=== PATIENT | male | born 1955 | race Caucasian/White ===

== ENCOUNTER → 2023-07-05 07:56 | Outpatient (BNVA) | payer MEDICARE, OTHER, SELFPAY | PROVIDERS: Family Provider Family Medicine; PCP Family Medicine; Visit Provider Podiatrist Foot & Ankle Surgery | DX: R22.41 Localized swelling, mass and lump, right lower limb; M67.471 Ganglion, right ankle and foot; M20.21 Hallux rigidus, right foot | CPT/HCPCS: 73630; 99204 ==

== ENCOUNTER 2023-08-04 05:47 | Day surgery (SDC) | payer MEDICARE, OTHER, SELFPAY ==
[2023-08-04] VITALS (7 sets, daily range): BP systolic 95–169; BP diastolic 61–112; PULSE 43–56; RESP 14–18; TEMP 36.1–36.7; O2SAT 95–99; BMI 25.0
[2023-08-04] MEDS: sodium chloride 0.9% 1,000 ML 30 ML IV (06:36)
--- NOTE | 2023-08-04 06:37 | W.PM.OPSUD ---
Surgery/Procedure H&P Update DATE OF PROCEDURE: August 04, 2023 DATE H&P PERFORMED: 07/05/23 H&P UPDATE INFORMATION: I have reviewed H&P completed within last 30 days, I have examined patient prior to procedure, No changes to prior documentation and H&P is in [facility] EMR on date indicated PREOP DIAGNOSIS: Mucoid cyst right great toe PLANNED PROCEDURE: Operation Date: 08/04/23 07:00 Proposed Procedures p ?Exostectomy right foot [id number],M87.877,M67.40(Right) - Allen Dailey DPM s Excision of mucoid cyst, right foot(Right) - Allen Dailey DPM
--- NOTE | 2023-08-04 06:45 | ANES.PREANE2 ---
Pre-Anesthetic Assessment Height/Weight: Height 1.88 m Weight 88.451 kg Temp Pulse Resp BP Pulse Ox O2 Del Method 97.1 F L 55 L 16 169/112 99 Room Air 08/04/23 06:11 08/04/23 06:11 08/04/23 06:11 08/04/23 06:11 08/04/23 06:11 08/04/23 06:15 Preop Diagnosis: Mucoid cyst right great toe Operation Date: 08/04/23 07:00 Proposed Procedures p ?Exostectomy right foot [id number],M87.877,M67.40(Right) - Allen Dailey DPM s Excision of mucoid cyst, right foot(Right) - Allen Dailey DPM Familial anesthetic complications: None Was Beta Iron taken within 24 hours: N/A Was Clonidine taken within 24 hours: N/A Last intake: Intake Last Liquid Date 08/03/23 Last Liquid Time 21:00 Last Solid Date 08/03/23 Last Solid Time 16:00 Social No alcohol and No tobacco Exam alert, oriented x 3, clear to auscultation bilaterally and regular rate & rhythm Airway Mallampati: Class I Dentition: full Metabolic Hyperlipidemia Anesthetic Plan ASA status: 2 Anesthesia: MAC Risk of > 500 ml blood loss (7ml/kg in children): No Medications/Allergies Home Medications Medication Instructions Recorded Confirmed Last Taken Type custom molded orthotics with #1 ea 07/05/23 07/05/23 Unknown Rx mortons extension simvastatin 10 mg tablet 10 mg PO DAILY 07/05/23 08/03/23 08/03/23 History Allergies Allergy/AdvReac Type Severity Reaction Status Date / Time latex Allergy CONSUELOY-Ogiste Verified 08/03/23 11:58 r Current Medications Generic Name Dose Route Start Last Admin Trade Name Freq PRN Reason Stop Dose Admin Sodium Chloride 1,000 mls @ 30 mls/hr 08/04/23 06:00 08/04/23 06:36 Sodium Chloride 0.9% IV 08/05/23 05:59 30 mls/hr .Q24H MATT Administration PFSH Anesthesia Social History (Updated 07/05/23 @ 08:07 by Derrick Wick LPN) Smoking and tobacco/nicotine status: never used tobacco/nicotine Alcohol intake: never Substance/Drug Use: never Data Anesthesia Cardiac Studies: No Data to Display
[2023-08-04] MEDS: ceFAZolin 2,000 MG in sodium chloride 0.9% (plus) 50 ML 100 MG IV (06:59)
[2023-08-04] MEDS: BUPivacaine liposome 13.3 mg/mL SDV 10 mL 133 MG (07:16)
[2023-08-04] MEDS: BUPivacaine 0.5% INJ 10 mL INJECTION (07:16)
--- NOTE | 2023-08-04 07:29 | P.BOP_ITS ---
Date of Procedure: 08/04/23 Surgeon: Allen Dailey DPM [employer] Engineer Sergeant(s): Janet Procedure(s) performed: Excision of soft tissue mass right great toe Findings of the procedure(s): Ganglion cyst/mucoid cyst right great toe Estimated blood loss: 2 mL Specimen(s) removed: Mucoid cyst right great toe sent to pathology Post-operative diagnosis: Mucoid cyst right great toe No complications with anesthesia or surgery.
--- NOTE | 2023-08-04 07:30 | P.OP_ITS ---
Operative Report Date of procedure: August 04, 2023 Pre-op diagnosis: Right great toe exostosis. Mucoid cyst right great toe. Post-op diagnosis: Same Post-op findings: Mucoid cyst right great toe observed intraoperatively and sent to pathology. Procedure done: Exostectomy right foot. CPT code 70588 Excision of mucoid cyst right foot. CPT code 57912 Implants: 3-0 Vicryl, 4-0 Vicryl, 4-0 nylon Specimens removed/disposition: None Pathology: soft tissue mass consistent with mucoid cyst sent to pathology Surgeon: Allen Dailey DPM Media Traffic Manager: Janet Estimated blood loss: 2 8 IV fluids: 0 Urine output: 0 Complications: None Brief History: Patient requesting removal of cyst, has had a history of a cyst on a lesser toe of the right foot that took 3 surgeries to finalize removal. He would like to proceed with excision of cyst with understanding that there is a high risk of recurrence. Will ask to have this done in July. I reviewed at length with the patient, the risks, potential complications, benefits, alternatives, expectations, and typical outcomes associated with the surgery. The risks and potential complications were explained in detail, including but not limited to infection, wound dehiscence or soft tissue complications, bleeding and hematoma, chronic edema, neuritis or nerve damage producing numbness or chronic pain, CRPS, failure to relieve pain or worsening pain, thick / painful / unsightly s car, limited motion / stiffness, malposition, delayed union, malunion, or nonunion, fracture, reaction to implants, anesthetic complications, venous thromboembolism, and deformity recurrence. I discussed the notion of no regrets with the patient as it pertains to complications and outcomes. The patient seemed to understand the nature of the proposed care and required convalescence. They asked appropriate questions, answered to their satisfaction. They are aware no guarantees can be made as to a satisfactory outcome and they understand there may be other possible unforeseen complications or outcomes not listed here that will be treated accordingly if they arise. There were no written or implied guarantees given to the patient. They gave informed consent to proceed. Procedure: Under mild sedation the patient was brought to the operating room and remained on the gurney in supine position. A timeout was performed. Anesthesia was then administered by the anesthesia service. Local anesthesia was injected by myself consisting of 0.5% Marcaine plain total of 20 cc in a right male block fashion. Additional 10 cc of Exparel infiltrated subcutaneously in a grid like fashion proximal to the right foot operative site. Well-padded pneumatic tourniquet applied to the right ankle. The right lower extremity was scrubbed, prepped and draped utilizing normal aseptic technique. Right foot was exanguinated with an Esmarch bandage and the tourniquet inflated to 250 mmHg. Attention was directed to the dorsum of the right hallux interphalangeal joint where osseous prominence and soft tissue mass was palpated and visualized. Transverse semielliptical converging incision was performed with skin bridge excised and passed to operative field and dissection carried down sharply and bluntly down to the soft tissue mass which was circumscribed and excised in total and passed from the operative field to be sent to pathology for review int raoperatively this was a viscous clear/off yellow gelatinous fluid consistent with ganglion cyst measuring 4 mm x 6 mm x 10 mm. The pedicle was identified and tied off with 3-0 Vicryl followed by saline flush. Attention was then directed to the distal phalanx base and proximal phalanx head where bony exostosis was excised with rongeur and smoothed with rasp, all bleeders were ligated and cauterized as necessary with electrocautery. The incision was irrigated with copious metatarsal and solution. Subcutaneous tissue reapproximated with 4-0 Vicryl. Skin with 4-0 nylon. Incision was dressed with Adaptic, sterile 4 x 4's, Kerlix and Timothy wrap, postop shoe was applied to the right foot. Tourniquet was then deflated and a prompt hyperemic response was noted to the distal digits of the right foot. Patient tolerated the procedure and anesthesia well and was transferred to the PACU with vital signs stable and vascular status intact. Following a period of postoperative monitoring he will be discharged home is to be weightbearing as tolerated below threshold of pain. He is to keep his surgical dressings clean, dry and intact until follow-up visit. Was given home care instructions, scheduled follow-up and my cell phone number to contact me with any postoperative questions or concerns.
--- NOTE | 2023-08-04 09:10 | ANE.PACU2 ---
Inpatient post-anesthesia follow up: Airway intact: Yes Vital signs: Temperature 98.1 F Pulse Rate 48 Respiratory Rate 18 Blood Pressure 141/90 Pulse Oximetry 98 Oxygen Delivery Me thod Room Air Oxygen Flow Rate 6 Fraction of Inspir ed Oxygen Hydration adequate: Yes Nausea and vomiting: No Pain level: 1 Mental status: Baseline
== END 2023-08-04 09:10 | disposition home or self-care (01) ==
PROVIDERS: PCP Family Medicine; Visit Provider Podiatrist Foot & Ankle Surgery
PROC: (CPT 28288; principal; 2023-08-04 07:00)
PROC: (CPT 28092; 2023-08-04 07:00)
DX: M87.877 Other osteonecrosis, right toe(s) (principal); M67.471 Ganglion, right ankle and foot; E78.5 Hyperlipidemia, unspecified
CPT/HCPCS: 28092; 28124; 88307; C9290; J0690; J2704; J3010; J3490; J7030

== ENCOUNTER → 2023-08-10 13:26 | Outpatient (BNVA) | payer MEDICARE, OTHER, SELFPAY | PROVIDERS: PCP Family Medicine; Visit Provider Podiatrist Foot & Ankle Surgery | DX: Z98.890 Other specified postprocedural states (principal) | CPT/HCPCS: 99024 ==

== ENCOUNTER → 2023-08-17 12:51 | Outpatient (BNVA) | payer MEDICARE, OTHER, SELFPAY | PROVIDERS: PCP Family Medicine; Visit Provider Podiatrist Foot & Ankle Surgery | DX: Z98.890 Other specified postprocedural states (principal) | CPT/HCPCS: 99024 ==

== ENCOUNTER → 2023-11-02 08:34 | Outpatient (BNVA) | payer MEDICARE, OTHER, SELFPAY | PROVIDERS: PCP Family Medicine; Visit Provider Podiatrist Foot & Ankle Surgery | DX: M20.21 Hallux rigidus, right foot (principal); D21.21 Benign neoplasm of connective and other soft tissue of right lower limb, including hip | CPT/HCPCS: 99214 ==

== ENCOUNTER 2023-12-08 05:49 | Day surgery (SDC) | payer MEDICARE, OTHER, SELFPAY ==
[2023-12-08] VITALS (7 sets, daily range): BP systolic 95–171; BP diastolic 62–102; PULSE 46–53; RESP 12–18; TEMP 36.2–36.5; O2SAT 96–100; BMI 24.3
--- NOTE | 2023-12-08 06:16 | W.PM.OPSUD ---
Surgery/Procedure H&P Update DATE OF PROCEDURE: December 08, 2023 DATE H&P PERFORMED: 12/08/23 H&P UPDATE INFORMATION: I have reviewed H&P completed within last 30 days, I have examined patient prior to procedure, No changes to prior documentation and H&P is in [facility] EMR on date indicated PREOP DIAGNOSIS: Hallux rigidus, mucoid cyst, plantar fibroma all right foot PLANNED PROCEDURE: Operation Date: 12/08/23 07:00 Proposed Procedures p Metatarsal Osteotomy/ Modified [place] double osteotomy first metatarsal(Right) - Allen Dailey DPM s Excision Mass/Lesion/Excision of mucoid cyst right great toe(Right) - MARY Rhodes Hallux Interphalangeal Joint Fusion/Arthroplasty right hallux interphalangeal joint(Right) - Allen Dailey DPM s Cortisone Injection/ Cortisone injection plantar fibroma right forefoot(Right) - Allen Dailey DPM
--- NOTE | 2023-12-08 06:17 | P.HP_ITS ---
Providers/Chief Complaint Primary Care Provider: Isadora Weldon MD Chief Complaint: M20.21 History of Present Illness 68-year-old male returns to clinic with several areas of concern on his right foot. He had a reoccurrence of a mucoid cyst at the right great toe that is bothersome. He also has hallux rigidus previously diagnosed and he would like to discuss surgical treatment options as he has failed conservative measures, he is a very active individual, still runs daily and remains fit. He also is a pain at the ball of his right foot that he would like to have evaluated at today's visit. Patient denies any subjective nausea, vomiting, fever, chills, shortness of breath or chest pain. Review of Systems General: Reports: 10 or more systems reviewed and unremarkable except in HPI and below Const: Denies: fever(s) or chills Eyes: Denies: change in vision Card: Denies: chest pain or palpitations Resp: Denies: dyspnea or productive cough GI: Denies: abdominal pain, nausea or vomiting : Denies: flank pain Musc: Reports: extremity pain, joint pain, joint stiffness, limited range of motion and deformity Skin/Breast: Reports: skin tenderness; Denies: rash Neuro: Reports: difficulty walking; Denies: numbness in extremities, sensory changes or frequent falls Psych: Denies: suicidal ideation Martin/Lymph: Denies: easy bruising Medications/Allergies Home Medications Medication Instructions Recorded Confirmed Last Taken Type custom molded orthotics with #1 ea 07/05/23 11/02/23 Unknown Rx mortons extension simvastatin 10 mg tablet 10 mg PO DAILY 07/05/23 12/07/23 12/07/23 History Allergies Allergy/AdvReac Type Severity Reaction Status Date / Time latex Allergy ALGY-Bliste Verified 11/02/23 08:41 r PFSH PFSH: Medical History (Updated 12/08/23 @ 06:18 by Allen Dailey DPM) Mucoid cyst of joint Social History Smoking and tobacco/nicotine status: never used tobacco/nicotine Alcohol intake: never Substance/Drug Use: never Physical Exam Narrative: EXAM NARRATIVE: GENERAL: Patient is alert and oriented ?3 and in no acute distress. The following is a focused right lower extremity exam. VASCULAR: Dorsalis pedis and posterior tibial arteries palpable +2. Capillary refill time less than 3 seconds to the distal hallux bilaterally. Calf is supple and nontender proximally and distally. Mild edema at the operative site consistent with postoperative course. NEUROLOGICAL: Protective sensation intact to light touch. DERMATOLOGICAL: Soft tissue mass at the dorsal medial aspect of the right hallux interphalangeal joint measures 1 cm x 1 cm transilluminates indicating fluid- filled is mildly tender to palpation. MUSCULOSKELETAL: Pain to palpation at cyst noted above. Patient also has decreased first metatarsal phalangeal joint dorsiflexion at right foot. Pain and guarding associated with dorsiflexion of the right first metatarsal phalangeal joint. 15 degrees of dorsiflexion appreciated in clinic at today's visit. Painful well-circumscribed nodule subthird metatarsal head right foot measures 0.5 cm x 0.5 cm is palpable and appears to be subcutaneously located. CARDIOVASCULAR: S1, S2, normal rate, normal rhythm. Dorsalis pedis and posterior tibial arteries palpable. LUNGS: Clear to auscltation, no use of acessory muscles, no crackles or wheezes. 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 Flores is a pleasant 68-year-old male returns to clinic with several areas of concern on his right foot. He had a reoccurrence of a mucoid cyst at the right great toe that is bothersome. He also has hallux rigidus previously diagnosed and he would like to discuss surgical treatment options as he has failed conservative measures, he is a very active individual, still runs daily and remains fit. He also is a pain at the ball of his right foot that he would like to have evaluated at today's visit. Discussed excision of mucoid cyst at the right great toe, recommended wider skin margin excision and arthroplasty of the underlying joint. Recommended decompression osteotomy of the distal first metatarsal right foot and cheilectomy of the right first metatarsal phalangeal joint as well as cortisone injection to plantar fibroma right plantar forefoot. I reviewed at length with the patient, the risks, potential complications, benef its, alternatives, expectations, and typical outcomes associated with the surgery. The risks and potential complications were explained in detail, including but not limited to infection, wound dehiscence or soft tissue complications, bleeding and hematoma, chronic edema, neuritis or nerve damage producing numbness or chronic pain, CRPS, failure to relieve pain or worsening pain, thick / painful / unsightly scar, limited motion / stiffness, malposition, delayed union, malunion, or nonunion, fracture, reaction to implants, anesthetic complications, venous thromboembolism, and deformity recurrence. I discussed the notion of no regrets with the patient as it pertains to complications and outcomes. The patient seemed to understand the nature of the proposed care and required convalescence. They asked appropriate questions, answered to their satisfaction. They are aware no guarantees can be made as to a satisfactory outcome and they understand there may be other possible unforeseen complications or outcomes not listed here that will be treated accordingly if they arise. There were no written or implied guarantees given to the patient. They gave informed consent to proceed. Date of operation December 08, 2023, outpatient Local MAC versus LMA per anesthesia preference [place], supine, 60 minutes Mini C arm [place] TPS Coding Level of Care Code Acute Code for Chg Fwd Diagnoses Hallux rigidus, right foot M20.21 Mucoid cyst of joint M67.40 Plantar fascial fibromatosis of right foot M72.2
--- NOTE | 2023-12-08 06:21 | PM.OP ---
Operative Report Date of procedure: December 08, 2023 Pre-op diagnosis: Hallux rigidus of right foot. M20.21 Plantar fibroma of right foot. D21.21 Mucoid cyst right great toe. 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 M19.071 Post-op diagnosis: Same Procedure done: 1) modified [place] double osteotomy first metatarsal. CPT code 94109 2) excision of mucoid cyst right great toe. CPT code 92111 3) arthroplasty right hallux interphalangeal joint. CPT code 99931 4) cortisone injection plantar fibroma right forefoot. CPT code 31822 Implants: Fossil 3 mm headed screw, cannulated, partially-threaded 3-0 Vicryl, 4-0 Vicryl, 4-0 nylon Specimens removed/disposition: None Surgeon: Allen Dailey DPM Women'S Soccer Coach: Vignesh Horan Estimated blood loss: 5 46 Brief History: Mr. Flores is a pleasant 68-year-old male returns to clinic with several areas of concern on his right foot. He had a reoccurrence of a mucoid cyst at the right great toe that is bothersome. He also has hallux rigidus previously diagnosed and he would like to discuss surgical treatment options as he has failed conservative measures, he is a very active individual, still runs daily and remains fit. He also is a pain at the ball of his right foot that he would like to have evaluated at today's visit. Discussed excision of mucoid cyst at the right great toe, recommended wider skin margin excision and arthroplasty of the underlying joint. Recommended decompression osteotomy of the distal first metatarsal right foot and cheilectomy of the right first metatarsal phalangeal joint as well as cortisone injection to plantar fibroma right plantar forefoot. I reviewed at length with the patient, the risks, potential complications, benefits, alternatives, expectations, and typical outcomes associated with the surgery. The risks and potential complications were explained in detail, including but not limited to infection, wound dehiscence or soft tissue complications, bleeding and hematoma, chronic edema, neuritis or nerve damage producing numbness or chronic pain, CRPS, failure to relieve pain or worsening pain, thick / painful / unsightly scar, limited motion / stiffness, malposition, delayed union, malunion, or nonunion, fracture, reaction to implants, anesthetic complications, venous thromboembolism, and deformity recurrence. I discussed the notion of no regrets with the patient as it pertains to complications and outcomes. The patient seemed to understand the nature of the proposed care and required convalescence. They asked appropriate questions, answered to their satisfaction. They are aware no guarantees can be made as to a satisfactory outcome and they understand there may be other possible unforeseen complications or outcomes not listed here that will be treated accordingly if they arise. There were no written or implied guarantees given to the patient. They gave informed consent to proceed. Procedure: Under mild sedation patient was brought to the operating room and remained on the gurney in supine position. A timeout was performed. Anesthesia was then administered by the anesthesia service. Local anesthesia injected by myself consisting of 20 cc of 0.5 to Marcaine plain and a right male block fashion and an additional 10 cc of Exparel subcutaneously proximal to the operative site at the right medial forefoot. Well-padded pneumatic tourniquet was applied to the right ankle. The right lower extremity was scrubbed, prepped and draped utilizing normal aseptic technique. Right foot was exanguinated with an Esmarch bandage and tourniquet inflated to 250 mmHg. Attention was directed to the right first metatarsal phalangeal joint where a curvilinear incision was made medial and parallel to the extensor hallucis longus tendon through skin with #15 blade with dissection carried down through subcutaneous tissue to the layer of periosteum and joint capsule which was then incised. Care was taken to retract and preserve neurovascular and tendinous structures. All bleeders were ligated and cauterized as necessary. A young [place] style chevron osteotomy with apex oriented distally was performed, this was a double osteotomy with a 3 mm sliver was taken dorsally to shift the first metatarsal head both inferiorly and proximally approximately 2 to 3 mm with excellent bony apposition and compression noted at the osteotomy site once fixated utilizing standard AO technique with a Fossil 3 mm headed partially-threaded screw. All rough edges were smoothed and first metatarsal head was contoured anatomically both at the first metatarsal head and base of the proximal phalanx effectively performing a cheilectomy and decompression osteotomy. Smooth range of motion was appreciated at the right first metatarsophalangeal joint with increased dorsiflexion appreciated intraoperatively at 45 degrees compared to preoperatively at 15 degrees. Incision was irrigated and closed in a layered fashion with capsule reapproximated with 3-0 Vicryl, subcutaneous tissue with 4-0 Vicryl and skin with 4-0 nylon. Attention was directed to the right great toe where a mucoid cyst was appreciated medial to the hallux interphalangeal joint, longitudinal incision was made similar elliptical and fashion maintaining enough skin as to allow for closure this was intricate. This was excised utilizing a #15 blade and bovied with electrocautery. Attention was then directed to the right hallux interphalangeal joint was noted to have arthrosis, arthroplasty was performed utilizing rongeur of dorsal bossing at the base of the distal phalanx and head of the distal phalanx of the right hallux interphalangeal joint. Incisions were then irrigated with saline solution and closed in a layered fashion. Attention was directed to the right plantar forefoot where a palpable fibroma previously documented was identified, intralesional injection was performed with cortisone consisting of dexamethasone, Kenalog and Marcaine total of 3 cc, 1 cc each this was a 1 to one-to-one ratio. Incisions were dressed with Adaptic, sterile 4 x 4's, Kerlix and Timothy wrap. Cam boot was applied to the right lower extremity. Tourniquet was deflated and a prompt hyperemic response is noted to the digits of the right foot. Patient tolerated the procedure and anesthesia well and was transferred to the PACU with vital signs stable and vascular status intact. Following a period of postoperative monitoring he will be discharged home without home care instructions and scheduled follow-up.
[2023-12-08] MEDS: sodium chloride 0.9% 1,000 ML 30 ML IV (06:31)
--- NOTE | 2023-12-08 06:36 | ANES.PREANE2 ---
Pre-Anesthetic Assessment Height/Weight: Height 1.88 m Weight 86.183 kg Temp Pulse Resp BP Pulse Ox O2 Del Method 97.5 F L 53 L 18 171/102 98 Room Air 12/08/23 06:10 12/08/23 06:10 12/08/23 06:10 12/08/23 06:10 12/08/23 06:10 12/08/23 06:10 Preop Diagnosis: Hallux rigidus, mucoid cyst, plantar fibroma all right foot Operation Date: 12/08/23 07:00 Proposed Procedures p Metatarsal Osteotomy/ Modified [place] double osteotomy first metatarsal(Right) - Allen Dailey DPM s Excision Mass/Lesion/Excision of mucoid cyst right great toe(Right) - MARY Rhodes Hallux Interphalangeal Joint Fusion/Arthroplasty right hallux interphalangeal joint(Right) - Allen Dailey DPM s Cortisone Injection/ Cortisone injection plantar fibroma right forefoot(Right) - Allen Dailey DPM Familial anesthetic complications: None Was Beta Iron taken within 24 hours: N/A Was Clonidine taken within 24 hours: N/A Last intake: Intake Last Liquid Date 12/07/23 Last Liquid Time 22:00 Last Solid Date 12/07/23 Last Solid Time 16:30 Social No alcohol and No tobacco Exam alert, oriented x 3, clear to auscultation bilaterally and regular rate & rhythm Airway Mallampati: Class I Dentition: full Metabolic Hyperlipidemia Anesthetic Plan ASA status: 2 Anesthesia: Choice Risk of > 500 ml blood loss (7ml/kg in children): No Medications/Allergies Home Medications Medication Instructions Recorded Confirmed Last Taken Type custom molded orthotics with #1 ea 07/05/23 11/02/23 Unknown Rx mortons extension simvastatin 10 mg tablet 10 mg PO DAILY 07/05/23 12/07/23 12/07/23 History hydrocodone 10 mg-acetaminophen 1 tab PO Q6H PRN pain 7 days #28 12/08/23 Unknown Rx 325 mg tablet tabs Allergies Allergy/AdvReac Type Severity Reaction Status Date / Time latex Allergy ALGY-Bliste Verified 11/02/23 08:41 r Current Medications Generic Name Dose Route Start Last Admin Trade Name Freq PRN Reason Stop Dose Admin Sodium Chloride 1,000 mls @ 30 mls/hr 12/08/23 06:15 12/08/23 06:31 Sodium Chloride 0.9% IV 12/09/23 06:14 30 mls/hr .Q24H MATT Administration PFSH Anesthesia Medical History (Updated 12/08/23 @ 06:18 by Allen Dailey DPM) Mucoid cyst of joint Social History Smoking and tobacco/nicotine status: never used tobacco/nicotine Alcohol intake: never Substance/Drug Use: never Data Anesthesia Cardiac Studies: No Data to Display
[2023-12-08] MEDS: CELEcoxib 200 mg Capsule 400 MG PO (06:42)
[2023-12-08] MEDS: ceFAZolin 2,000 MG in sodium chloride 0.9% (plus) 50 ML 100 MG IV (07:07)
[2023-12-08] MEDS: BUPivacaine 0.5% INJ 30 mL INJECTION (07:30)
[2023-12-08] MEDS: BUPivacaine liposome 13.3 mg/mL SDV 10 mL 133 MG INFILTRATI (07:30)
[2023-12-08] MEDS: triamcinolone 40 mg/mL SDV INJECTION (07:32)
[2023-12-08] MEDS: dexamethasone 4 mg/mL INJ INJECTION (07:33)
--- NOTE | 2023-12-08 08:24 | W.PM.BPON ---
Date of Procedure: 09/29/23 Surgeon: Allen Dailey DPM Summer Babysitter(s): [] Procedure(s) performed: [place] modified decompression osteotomy right first metatarsophalangeal joint. Cortisone injection right plantar fibroma. Exostectomy right hallux interphalangeal joint. Excision of mucoid cyst right great toe. Findings of the procedure(s): None Estimated blood loss: 5 mL Specimen(s) removed: No specimens Post-operative diagnosis: Right hallux rigidus. Right hallux mucoid cyst. Plantar fibromatosis No complications with anesthesia or surgery
--- NOTE | 2023-12-08 09:15 | ANE.PACU2 ---
Inpatient post-anesthesia follow up: Airway intact: Yes Vital signs: Temperature 97.2 F Pulse Rate 46 Respiratory Rate 18 Blood Pressure 151/87 Pulse Oximetry 100 Oxygen Delivery Me thod Room Air Oxygen Flow Rate Fraction of Inspir ed Oxygen Hydration adequate: Yes Nausea and vomiting: No Pain level: 1 Mental status: Baseline
== END 2023-12-08 09:15 | disposition home or self-care (01) ==
PROVIDERS: PCP Family Medicine; Visit Provider Podiatrist Foot & Ankle Surgery
PROC: (CPT 20550; principal; 2023-12-08 07:00)
PROC: (CPT 20550; 2023-12-08 07:00)
PROC: (CPT 28755; 2023-12-08 07:00)
PROC: (CPT 96372; 2023-12-08 07:00)
DX: M20.21 Hallux rigidus, right foot (principal); D21.21 Benign neoplasm of connective and other soft tissue of right lower limb, including hip; M71.371 Other bursal cyst, right ankle and foot; M19.071 Primary osteoarthritis, right ankle and foot; E78.5 Hyperlipidemia, unspecified
CPT/HCPCS: 20550; 28092; 28124; 28299; C1713; C9290; J0690; J1100; J2704; J3010; J3301; J3490; J7030

== ENCOUNTER → 2023-12-26 07:38 | Outpatient (BNVA) | payer MEDICARE, OTHER, SELFPAY | PROVIDERS: PCP Family Medicine; Visit Provider Podiatrist Foot & Ankle Surgery | DX: Z98.890 Other specified postprocedural states (principal) | CPT/HCPCS: 73630; 99024 ==

== ENCOUNTER → 2024-01-24 07:35 | Outpatient (BNVA) | payer MEDICARE, OTHER, SELFPAY | PROVIDERS: PCP Family Medicine; Visit Provider Podiatrist Foot & Ankle Surgery | DX: Z98.890 Other specified postprocedural states (principal) | CPT/HCPCS: 73630; 99024 ==

== ENCOUNTER → 2024-02-14 07:09 | Outpatient (BNVA) | payer MEDICARE, OTHER, SELFPAY | PROVIDERS: PCP Family Medicine; Visit Provider Podiatrist Foot & Ankle Surgery | DX: Z98.890 Other specified postprocedural states (principal) | CPT/HCPCS: 73630; 99024 ==

== ENCOUNTER → 2024-04-17 06:59 | Outpatient (BNVA) | payer MEDICARE, OTHER, SELFPAY | PROVIDERS: PCP Family Medicine; Visit Provider Podiatrist Foot & Ankle Surgery | DX: Z98.890 Other specified postprocedural states (principal); M25.871 Other specified joint disorders, right ankle and foot; M20.21 Hallux rigidus, right foot | CPT/HCPCS: 73630; 99213 ==

== ENCOUNTER 2024-10-31 01:21 | Emergency (ER) | payer MEDICARE, OTHER, SELFPAY ==
[2024-10-31 01:39] VITALS: BP 195/110; PULSE 81; RESP 18; TEMP 36.6; O2SAT 98; BMI 24.3
[2024-10-31 02:10] VITALS: BP 174/96; PULSE 54; O2SAT 97
[2024-10-31 02:18] LABS: Bilirubin Urine 1+ (Negative); Blood Urine 3+ (Negative); Glucose Urine UA Negative (Normal); Ketones Urine Negative (Negative); Leukocyte Esterase Urine 1+ (Negative); Nitrate Urine Positive (Negative); Protein Urine 2+ (Negative); Specific Gravity, Urine 1.011 (1.005-1.030); Urine Appearance Turbid (CLEAR); Urobilinogen Urine 0.2 mg/dL (Negative)
[2024-10-31 02:23] LABS: Bacteria Urine None Seen /hpf; Hyaline Casts Urine 0-4 /lpf; RBC Urine >100 /hpf (0-2); Squamous Epithelial Cell Urine 0-5 /hpf (0-5)
[2024-10-31 02:33] LABS: Add Urine Culture? Yes; Urine Color Red (Yellow)
[2024-10-31 03:10] VITALS: BP 140/81; PULSE 51; O2SAT 96
--- NOTE | 2024-10-31 03:25 | PC.NURSE ---
Irrigated bladder with 2L fluids per instruction of Dr Cordova. Urine return towards end clear and without clots. Patient in no discomfort at time of evaluation.
--- NOTE | 2024-10-31 03:35 | PC.NURSE ---
Leg bag applied. Patient was educated on how to adjust the bag and straps, how to empty the bag, to keep the bag lower than the level of the bladder, and use hand hygiene. Patient verbalized understanding to all education given and had no questions or concerns.
--- NOTE | 2024-10-31 03:46 | ED_ITS ---
HPI - Male Genitourinary General: Chief complaint: Urogenital-Male Stated complaint: Bleeding from Surgery Time Seen by Provider: 10/31/24 02:04 History of Present Illness: Patient is a 69-year-old male who underwent neurological surgery in [place] earlier in the day. He states that after surgery he was able to void but shortly thereafter voiding became problematic. He started to have a small trickle of nissa blood via urethra and started to feel retention. By the time he got to the emergency department he was fairly distressed due to the pain associated with retention. He has never required a Durbin catheter in the past. Related Data Home Medications ?Medication ?Instructions ?Recorded ?Confirmed simvastatin 10 mg tablet 10 mg PO DAILY 07/05/2308/09 Previous Rx's ?Medication ?Instructions ?Recorded custom molded orthotics with #1 ea 07/05/23 mortons extension Allergies Allergy/AdvReac Type Severity Reaction Status Date / Time latex Allergy ALGY-Bliste Verified 10/31/24 01:49 r PFSH ED PFSH: Medical History Mucoid cyst of joint Social History Smoking and tobacco/nicotine status: never used tobacco/nicotine Alcohol intake: never Substance/Drug Use: never Physical Exam Const: COMMON NORMALS: no acute distress, patient oriented x3 and alert HENMT: COMMON NORMALS: normocephalic and atraumatic HEAD & SCALP: normocephalic and atraumatic Eye: COMMON NORMALS: Equal, round and reactive pupils present, EOMs intact bilaterally and no scleral icterus PUPIL: Yes Equal, round and reactive pupils present Resp: COMMON NORMALS: normal respiratory effort and No retractions Cardio: COMMON NORMALS: regular rate, regular rhythm and No murmurs present (Cardio) RATE: regular rate RHYTHM: regular rhythm GI: COMMON NORMALS: Normal to inspection, nondistended, normoactive bowel sounds present, Soft to palpation and non-tender PALPATION: Yes Soft to p alpation : OTHER: Unable to urinate. Suprapubic fullness on palpation. Neuro: COMMON NORMALS: patient oriented x3 SENSORIUM/ORIENTATION: Yes alert Skin: COMMON NORMALS: no rashes or lesions noted GENERAL SKIN EXAM: no rashes or lesions noted Course Vital Signs: Vital signs: Vital Signs Temperature 97.9 F 10/31/24 01:39 Pulse Rate 51 L 10/31/24 03:10 Respiratory Rate 18 10/31/24 01:39 Blood Pressure 140/81 10/31/24 03:10 Pulse Oximetry 96 10/31/24 03:10 Oxygen Delivery Me thod Room Air 10/31/24 01:39 MDM - Male Medical Decision Making In summary, patient is a well-appearing 77-year-old male seen for urinary retention. After Durbin catheter was placed, he had roughly 900 mL of blood- tinged urine expressed immediately. He was soaked with three-way catheter and irrigated until urine output was clear. Multiple clots were expressed. He does not take blood thinners. He will be discharged in stable and improved condition with Durbin catheter in place with plan to call his urologist in the morning to help coordinate when it is safe to remove the catheter. He shows good understanding and knows that he is always welcome back in emergency department if needed. Lab Data Laboratory Results Urine Color Red (Yellow) A 10/31/24 02:12 Urine Appearance Turbid (CLEAR) A 10/31/24 02:12 Urine pH 8.0 (5-7) A 10/31/24 02:12 Ur Specific [place] 1.011 (1.005-1.030) 10/31/24 02:12 Urine Protein 2+ (Negative) A 10/31/24 02:12 Urine Glucose (UA) Negative (Normal) 10/31/24 02:12 Urine Ketones Negative (Negative) 10/31/24 02:12 Urine Blood 3+ (Negative) A 10/31/24 02:12 Urine Nitrate Positive (Negative) A 10/31/24 02:12 Urine Bilirubin 1+ (Negative) H 10/31/24 02:12 Urine Urobilinogen 0.2 mg/dL (Negative) 10/31/24 02:12 Ur Leukocyte Esterase 1+ (Negative) A 10/31/24 02:12 Urine RBC >100 /hpf (0-2) H 10/31/24 02:12 Urine WBC 6-10 /hpf (0-5) 10/31/24 02:12 Ur Squamous Epith Cells 0-5 /hpf (0-5) 10/31/24 02:12 Amorphous Sediment Not Reportable 10/31/24 02:12 Urine Bacteria None seen /hpf (NONE) 10/31/24 02:12 Hyaline Casts 0-4 /lpf H 10/31/24 02:12 No radiology studies performed this visit Discharge Plan Discharge Clinical Impression: Acute urinary retention, Hematuria Condition: Stable Prescriptions: No Action simvastatin 10 mg tablet 10 mg PO DAILY (DME) custom molded orthotics with mortons extension See Rx Instructions .Route .MEDSUPPLY Qty: 1 0RF Rx Instructions: As directed made by the jalil betancur Discharge Diet: Usual diet Discharge Activity: Resume usual activity Patient Instructions: Durbin Catheter Care, How to Change a Catheter Drainage Bag (DC) Activity Restrictions/Additional Instructions: Please contact your urologist and let them know that you had to go to the emergency department because you had urinary retention. After the Durbin catheter was placed, almost a liter of bloody urine was expressed immediately. We used a three-way catheter to irrigate the bladder until clear urine was expre ssed. Your urologist will be able to provide the best information on when it is safe to remove the catheter. Print Language: Chinese Coding Level of Care Code ED Criminal Justice Social Worker for Rush Perez
[2024-10-31 04:18] VITALS: BP 145/83; PULSE 54; O2SAT 93
== END 2024-10-31 04:24 | disposition home or self-care (01) ==
PROVIDERS: Emergency Provider Student in an Organized Health Care Education/Training Program
DX: R33.9 Retention of urine, unspecified (principal); R31.9 Hematuria, unspecified
CPT/HCPCS: 51702; 81001; 87086; 99283